=== PATIENT | male | born 1990 | race African-American/Black ===

== ENCOUNTER 2020-09-20 22:25 | Emergency (ER) | payer SELFPAY ==
[~2020-09-20] VITALS: Ht 188 cm; Wt 74.0 kg
[2020-09-20] MEDS ORDERED: MAGNESIUM 2 G PREMIX 50 ML IV STA (23:32)
[2020-09-20] MEDS ORDERED: IPRATROPIUM BROMIDE (0.02%) 0.5MG/2.5ML NEB HHN STA (23:32)
[2020-09-20] MEDS ORDERED: METHYLPREDNISOLONE SOD SUCC 125 MG/2 ML VIAL IV STA (23:32)
[2020-09-20] MEDS ORDERED: ALBUTEROL (0.083%) 2.5MG/3ML NEB HHN STA (23:32)
[2020-09-20] MEDS ORDERED: SODIUM CHLORIDE 0.9% 1,000 ML IV ONE (23:45)
[2020-09-21 02:12] VITALS: BP 146/83
== END 2020-09-21 02:37 | disposition home or self-care (01) ==
LOC: ER 22:25
DX: J45.901 Unspecified asthma with (acute) exacerbation (principal); F17.200 Nicotine dependence, unspecified, uncomplicated
CPT/HCPCS: 71045; 93005; 94640; 96365; 96366; 96375; 99284; J2930; J3475; J7030; Z7610

== ENCOUNTER 2022-10-19 06:20 | Emergency (ER) | payer BC ==
[~2022-10-19] VITALS: Ht 188 cm; Wt 73.2 kg
[2022-10-19 06:24] VITALS: BP 138/77
[2022-10-19] MEDS ORDERED: SODIUM CHLORIDE 0.9% 1,000 ML IV ONE (06:45)
[2022-10-19] MEDS ORDERED: ONDANSETRON HCL 4MG/2ML INJ IV ONE ×2 (06:45→11:15)
[2022-10-19 08:33] LABS: HEMATOCRIT. 47.3 % (42.0-52.0); HEMOGLOBIN. 15.7 g/dL (14.0-18.0); MEAN CORPUSCULAR HEMOGLOBIN 27.3 pg (28.0-32.0); MEAN CORPUSCULAR VOLUME 82.2 fL (80.0-94.0); PLATELET 187 x1000/uL (130-400); RED BLOOD CELL COUNT 5.74 mill/uL (4.7-6.1); RED CELL DISTRIBUTION WIDTH 15.2 % (11.6-14.6)
[2022-10-19 08:46] LABS: CHLORIDE 98 mEq/L (98-107)
[2022-10-19 08:50] LABS: PROTHROMBIN TIME 10.3 sec (9.6-11.0)
[2022-10-19 10:01] LABS: PLATELET ESTIMATE NORMAL
[2022-10-19] MEDS ORDERED: ONDA4TAB50 MT (13:03)
== END 2022-10-19 13:24 | disposition home or self-care (01) ==
LOC: ER 06:20
DX: K92.0 Hematemesis (principal); R79.89 Other specified abnormal findings of blood chemistry; J45.909 Unspecified asthma, uncomplicated
CPT/HCPCS: 36415; 71045; 76705; 80053; 83690; 83880; 84484; 85025; 85610; 96361; 96374; 96376; 99285; J2405; J7030; Z7610